=== PATIENT | male | born 1955 | race Caucasian/White ===

== ENCOUNTER → 2018-10-31 15:25 | Outpatient (CLI) | payer OTHER, SELFPAY ==
--- NOTE | 2018-10-31 | DI.MRI.S_ITS ---
PROCEDURE: MR LUMBAR SPINE WO CON INDICATIONS: Low back and right leg radicular pain TECHNIQUE: Noncontrast sagittal T1 spin echo and T2 fast echo, coronal T2, sagittal STIR, axial T1 and T2 fast spin echo through the lumbar spine. COMPARISON: None. FINDINGS: Image quality: Excellent. Alignment and Curvature: No plain films are available for comparison, for numbering purposes. Thus, for the purposes of this examination, 5 lumbar type vertebral bodies will be presumed, as denoted on the montage panel. This should be confirmed and correlated with plain films, prior to any lumbar spinal intervention.There is moderate leftward curvature of the mid lumbar spine. There is roughly 20 mm of rightward subluxation of L1 on L2, and roughly 13 mm of leftward subluxation of L3 on L4. Mild grade 1 retrolisthesis of L1 on L2 is present. Mild grade 1 anterolisthesis of L2 on L3 is present. Bone Marrow: Marrow is of normal overall signal. No acute vertebral body compression fractures. There is mild reactive signal within the endplates adjacent to the 1 L2, L2-L3, and L3-L4 intervertebral discs. Spinal Cord: Conus medullaris terminates at the T12-L1 disc space level. Visualized cord demonstrates normal signal and size. Paraspinous Soft Tissues: No paravertebral masses. L1-L2: Severe disc height loss and desiccation. Mild diffuse disc bulge/osteophyte. Mild facet hypertrophy. Mild canal stenosis. Mild bilateral foraminal stenosis. L2-L3: Moderate disc height loss and desiccation. Mild diffuse disc bulge. Mild bilateral facet hypertrophy. Mild canal stenosis. Moderate right and no left foraminal stenosis. L3-L4: Moderate disc height loss and desiccation. Mild diffuse disc bulge. Mild bilateral facet hypertrophy. Mild epidural lipomatosis. Mild canal stenosis. Mild right greater than left foraminal stenosis. L4-L5: Mild disc height loss and desiccation. Mild diffuse disc bulge. Moderate left greater than right facet hypertrophy. Mild canal stenosis. Severe left and mild right foraminal stenosis. Left L4 nerve compression. L5-S1: Mild disc height loss and desiccation. Mild diffuse disc bulge. Mild facet hypertrophy bilaterally. Mild canal stenosis. Mild bilateral foraminal stenosis. IMPRESSION: 1. 5 lumbar type vertebral bodies were presumed for the current report. Plain films of the lumbar spine are recommended for confirmation, prior to any lumbar spinal intervention. 2. Multilevel degenerative disc and facet disease, as well as ligamentum flavum hypertrophy and epidural lipomatosis. 3. Mild multilevel canal stenoses. 4. Multilevel foraminal stenoses, worst at L4-L5 on the left, where there is L4 nerve root compression. Recommend correlation with clinical symptoms to ascertain relevance of this finding. 5. Spinal curvature and multilevel spondylolistheses as described above. Dictated by: Mandy Ellison M.D. on 10/31/2018 at 16:30 Approved by: Mandy Ellison M.D. on 10/31/2018 at 16:35
== END ==
PROVIDERS: PCP Family Medicine; Visit Provider Family Medicine
DX: M51.16 Intervertebral disc disorders with radiculopathy, lumbar region (principal); M51.17 Intervertebral disc disorders with radiculopathy, lumbosacral region; M48.061 Spinal stenosis, lumbar region without neurogenic claudication; M48.07 Spinal stenosis, lumbosacral region; M47.26 Other spondylosis with radiculopathy, lumbar region; M47.27 Other spondylosis with radiculopathy, lumbosacral region; M43.16 Spondylolisthesis, lumbar region; E88.2 Lipomatosis, not elsewhere classified
CPT/HCPCS: 72148

== ENCOUNTER 2019-11-23 09:39 | Emergency (ER) | payer OTHER, SELFPAY ==
--- NOTE | 2019-11-23 09:36 | DI.RAD.S_ITS ---
PROCEDURE: XR KNEE RT 1TO2V INDICATIONS: knee pain, post op, per ortho TECHNIQUE: 2 views of the knee were acquired. COMPARISON: None. FINDINGS: Bones: No syeda, acute fractures are seen. Remote appearing bone fragments are seen superior to the patella. No suspicious lytic or blastic lesions are seen. Soft tissues: Prominent soft tissue swelling is seen anteriorly. There is a moderate joint effusion. IMPRESSION: Prominent soft tissue swelling is seen anteriorly. Moderate joint effusion. Remote appearing bone fragments are seen superior to patella. Dictated by: Elvis Cuadra M.D. on 11/23/2019 at 9:43 Approved by: Elvis Cuadra M.D. on 11/23/2019 at 9:44
[2019-11-23 09:37] VITALS: BP 167/89; PULSE 76; RESP 18; TEMP 36.9; O2SAT 98
--- NOTE | 2019-11-23 09:40 | ED_ITS ---
HPI - Extremity Injury (Lower) General Chief Complaint: Extremity Injury, Lower Stated Complaint: post op right leg pain Time Seen by Provider: 11/23/19 09:39 Source: patient Mode of arrival: EMS Limitations: no limitations History of Present Illness HPI Narrative: 64-year-old male nonsmoker presents from an outside facility for evaluation of severe right knee pain over the past day or 2. He recently had a quadriceps tendon repair at an outside, free-standing surgical center and was flown from the [facility] to [facility] last evening due to excruciating pain. He denies any new injury and has had no fever chills. His right foot has felt a bit cold and he has noticed significant swelling of his right knee. He has had no runny nose, fever or chills. He denies chest pain or shortness of breath. He denies any abdominal pain. His pain is worse with any motion and improves with rest. He had a very thorough examination in the emergency department in [place] including vascular studies, bedside evaluation by vascular surgeon. There is no occlusion of the vasculature and the right lower extremity. His calf and other compartments have been soft and there is no suspicion for compartment syndrome. He developed vomiting after he was administered ketamine. He was sent here for continuity of care as his surgery was performed by 1 of our surgeons. His initial injury was suffered when running, he tripped and fell forward onto fully flex knee and tore his quad tendon. complaint: knee injury Onset (ago): hour(s) Injury: Right: knee Type of Injury: blunt Place: street/outdoors Severity: severe Relieving factors: immobilization Exacerbating factors: weight bearing, movement and palpation Other symptoms: none Related Data Previous Rx's Medication Instructions Recorded oxycodone 10 mg PO Q6H PRN #42 tab 11/23/19 Allergies Allergy/AdvReac Type Severity Reaction Status Date / Time Penicillins AdvReac Severe ITCHING Verified 11/23/19 09:39 Review of Systems Constitutional Constitutional: Denies chills, Denies fatigue, Denies fever(s), Denies frequent falls, Denies lethargy and Denies weakness Eyes Eyes: Denies change in vision, Denies eye discharge, Denies irritation and Denies loss of vision ENT Ears, Nose, Mouth, and Throat: Denies change in voice, Denies dizziness, Denies neck pain, Denies sore throat and Denies throat swelling Cardiovascular Cardiovascular: Denies chest pain, Denies irregular heart rhythm, Denies lightheadedness, Denies palpitations, Denies dyspnea, Denies dyspnea on exertion and Denies orthopnea Respiratory Respiratory: Denies cough, Denies dyspnea, Denies dyspnea on exertion and Denies wheezing Gastrointestinal Gastrointestinal: Denies abdominal pain, Denies change in bowel habits, Denies diarrhea, Denies nausea and Denies vomiting Musculoskeletal Musculoskeletal: Reports arthralgias, Reports joint swelling, Denies neck pain and Denies numbness Integumentary/Breasts Skin/Breast: Denies pruritus, Reports erythema, Denies rash, Reports skin pain, Reports skin swelling and Denies wounds Neurologic Neurologic: Denies behavioral changes, Denies confusion, Denies dizziness, Denies frequent falls, Denies loss of vision, Denies numbness and Denies weakness Psychiatric Psychiatric: Denies anxiety, Denies behavioral changes, Denies confusion, Denies depression, Denies homicidal ideation and Denies suicidal ideation Endocrine Endocrine: Denies fatigue, Denies flushing and Denies palpitations Hematologic/Lymphatic Hematologic/Lymphatic: Denies easy bruising Allergic/Immunologic Allergic/Immunologic: Denies urticaria, Denies throat swelling and Denies wheezing Patient History Social History Smoking Status: Never smoker Smoking Status: Never smoker alcohol intake frequency: 0-2 drinks per day Substance Use Type: does not use Exam Narrative Exam Narrative: GENERAL: [64] year old patient appears stated age. Well- nourished, well-developed patient, in obvious pain, continuously rubbing his right knee HEAD: Atraumatic. Normocephalic. EYES: Pupils equal round and reactive. Extraocular motions intact. No scleral icterus. No injection or drainage. ENT: Nose without bleeding, purulent drainage. Throat without erythema, tonsillar hypertrophy or exudate. Airway patent. NECK: Trachea midline. Non tender CARDIOVASCULAR: Regular rate and rhythm without murmurs, gallops, or rubs. RESPIRATORY: Clear to auscultation. Breath sounds equal bilaterally. No wheezes, rales, or rhonchi. GASTROINTESTINAL: Abdomen soft, non-tender, nondistended. EXTREMITIES: Right knee with large effusion, erythema and warmth. Right foot is cool to the touch and dorsalis pedis is difficult to palpate, however cap refills present and bedside ultrasound notes flow by color Doppler in the dorsalis pedis. Compartments are soft, calf is nontender. BACK: Nontender without deformity or crepitance. No flank tenderness. NEURO: AOx3. SKIN: Otherwise No rash or erythema of visible areas Initial Vital Signs Initial Vital Signs: Vital Signs Temperature 98.4 F 11/23/19 09:37 Pulse Rate 76 11/23/19 09:37 Respiratory Rate 18 11/23/19 09:37 Blood Pressure 167/89 H 11/23/19 09:37 Pulse Oximetry 98 11/23/19 09:37 Course Orders Ordered: ED Orders 11/23/19 09:36 XR knee RT 1to2V Stat Discontinued Medications Hydromorphone HCl (Dilaudid) 0.5 mg IV NOW ONE Stop: 11/23/19 09:37 Last Admin: 11/23/19 09:42 Dose: 0.5 mg Documented by: BHARAT Oxycodone HCl (Percolone) 5 mg PO NOW ONE Stop: 11/23/19 11:11 Last Admin: 11/23/19 11:51 Dose: 5 mg Documented by: BHARAT Consultations Consultation #1: Call to Orthopedics on arrival this patient, Dr. Ulloa is aware of this patient's case and had been in contact with [facility]. He requests Xray Patient seen and evaluated by Ortho, please see their note for details. Very comfortable with discharge, recommended changing pain medication to Oxy 10 mg p.o. q.4 hours and requests a week's duration Time: 09:57 Vital Signs Vital signs: Vital Signs - 8 hr 11/23/19 09:37 11/23/19 09:53 11/23/19 10:00 Temperature 98.4 F Pulse Rate 76 75 68 Pulse Rate [Right Dorsalis Pedis] 78 Respiratory Rate 18 14 16 Blood Pressure 167/89 H Pulse Oximetry 98 94 97 11/23/19 12:06 Temperature Pulse Rate 78 Pulse Rate [Right Dorsalis Pedis] Respiratory Rate 19 Blood Pressure 156/82 H Pulse Oximetry 96 Discharge Plan Departure Patient Disposition: Home Clinical Impression: Post-operative pain Acute knee pain Qualifiers: Laterality: right Qualified Code(s): M25.561 - Pain in right knee Discharge Date/Time: 11/23/19 12:08 Instructions: DI for Knee Pain Activity Restrictions/Additional Instructions: *You have been diagnosed with [right knee swelling and pain status post surgery] *What to do: *Take medications as directed *Follow up with your primary care provider in 2-3 days, call for an appointment. Let them know you were seen in the Emergency Department and that we ask that you be seen in follow up *Return to ER if you should have any new, worsening or concerning symptoms Prescriptions: New oxycodone 10 mg tablet 10 mg PO Q6H PRN (Reason: pain) Qty: 42 RF: 0 Referrals: Willem Guerra [Primary Care Provider] -
[2019-11-23] MEDS: HYDROMORPHONE 0.5 MG INJ IV (09:42)
[2019-11-23 09:53] VITALS: PULSE 75; PULSE 78; RESP 14; O2SAT 94
[2019-11-23 10:00] VITALS: PULSE 68; RESP 16; O2SAT 97
--- NOTE | 2019-11-23 11:16 | PM.CN ---
History of Present Illness Consult details Date Patient Seen: 11/23/19 Time Patient Seen: 11:16 Chief complaint: post op right leg pain Reason for consult: post-op pain and sswelling Narrative: Patient is a 64 year old male from [place]. 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 He sustained a quad tendon tear and subsequently underwent repair with Dr. Oakley at the [facility] on . He was taking dialudid post-op and did OK the first night but monday night awoke with excruciating pain in the right knee. He called for an ambulance and was subsequently flown to [facility] in [place]. His right foot was found to be cool and mottled color. He underwent a vascular workup including CTA which showed normal runoff. Pain was controlled with IV morphine. Low concern per [facility] for compartment syndrome. I was called this am with concern for large hematoma that may require evacuation. He was subsequently transferred to [facility]. Meds Home Medications and Allergies Allergies Allergy/AdvReac Type Severity Reaction Status Date / Time Penicillins AdvReac Severe ITCHING Verified 11/23/19 09:39 Review of Systems Review of Systems ROS: Yes All systems reviewed with the patient and are negative except as otherwise documented Exam Vital Signs (past 8 hours): - 11/23/19 09:37 11/23/19 09:53 11/23/19 10:00 Temperature 98.4 F Pulse Rate 76 75 68 Pulse Rate [Right Dorsalis Pedis] 78 Respiratory Rate 18 14 16 Blood Pressure 167/89 H Pulse Oximetry 98 94 97 Oxygen Delivery Method Room Air Narrative Exam Narrative: Moderate swelling right knee. Palpable DP pulse, palpable PT pulse. NV intact in RLE. Dressing removed: incision is clean dry and intact. No drainage. NO pain out of proportion to exam, no pain with passive stretch of ankle. No pain with palpation of claf. Mild pain iwth palpation of thigh. Skin over the knee is pink and well perfused, no blanching Objective Imaging knee film: My impression: right knee perpatellar swelling and free air consistent with recent quad tendon repair. Small calcified fragments at superior pole of the patella likely sequela of quad tendon rupture. Assessment & Plan Assessment & Plan narrative: Patient is a 64 year old male now POD#2 from right quad tendon repiar. He was seen at [facility] last night for excruciating post-op pain. There was concern at that time for vascular injury vs compartment syndrome. Both of which were ruled out. CTA Impresison: the arteries are within normal limits from the level of the external iliacs through the right proximal claf. Distal runoff vessels are not opacified on this exam due to the timing of the contrast bolus. Patient is much more comfortable now with pain medications. Oxycodone 10mg Q4hrs PRN pain toe touch weight bearing RLE elevate and ICE Follow up with Dr. Oakley this week Time Spent With Patient Time with patient: 15-24 minutes
[2019-11-23] MEDS: OXYCODONE IR 5 MG TABLET PO (11:51)
[2019-11-23 12:06] VITALS: BP 156/82; PULSE 78; RESP 19; O2SAT 96
== END 2019-11-23 12:08 | disposition home or self-care (01) ==
PROVIDERS: Emergency Provider Emergency Medicine; PCP Family Medicine
DX: M25.561 Pain in right knee (principal)
CPT/HCPCS: 73560; 96374; 99284; J1170

== ENCOUNTER → 2021-12-15 16:29 | Outpatient (CLI) | payer OTHER, SELFPAY | PROVIDERS: PCP Physician Assistant; Referring Provider Internal Medicine; Visit Provider Internal Medicine | DX: Z23 Encounter for immunization (principal) | CPT/HCPCS: 90471; 90662 ==

== ENCOUNTER → 2022-11-30 | Outpatient (CLI) | payer OTHER, SELFPAY | PROVIDERS: PCP Family Medicine; Referring Provider Family Medicine; Visit Provider Family Medicine | DX: Z23 Encounter for immunization (principal) | CPT/HCPCS: 90471; 90662 ==

== ENCOUNTER → 2023-03-16 11:19 | Outpatient (CLI) | payer OTHER, SELFPAY ==
[2023-03-16 15:06] LABS: Add Manual Diff / Slide Review NO; Basophils Absolute Auto 0 /uL (0-100); Basophils Percent Auto 0.5 % (0-2); Eosinophils Absolute Auto 100 /uL (0-450); Eosinophils Percent Auto 1.6 % (2-4); Hematocrit 42.3 % (41-53); Hemoglobin 14.5 g/dL (13.5-17.5); Lymphocytes Absolute Auto 1500 /uL (1100-4500); Lymphocytes Percent Auto 34.3 % (25-40); Mean Corpuscular HGB Conc 34.3 % (30-36); Mean Corpuscular Hemoglobin 30.3 PG (26-34); Mean Corpuscular Volume 88.4 fL (80-100); Monocytes Absolute Auto 300 /uL (0-900); Monocytes Percent Auto 6.8 % (3-14); Neutrophils Absolute Auto 2500 /uL (1500-7000); Neutrophils Percent Auto 56.8 % (50-75); Platelet Count 191 X10^3/uL (150-400); Red Blood Cell Count 4.79 X10^6/uL (4.5-5.9); Red Cell Distribution Width 12.8 % (11.6-14.8); White Blood Cell Count 4.5 X10^3/uL (4.5-11.0)
[2023-03-16 15:11] LABS: Alanine Aminotransferase 24 IU/L (<50); Albumin 4.2 g/dL (3.5-5.0); Albumin Globulin Ratio 1.4 (1.0-2.8); Alkaline Phosphatase 64 U/L (38-126); Aspartate Aminotransferase 32 IU/L (17-59); BUN Creatinine Ratio 18.6 (6-22); Bilirubin Total 0.8 mg/dL (0.2-1.3); Blood Urea Nitrogen 16 mg/dL (9-20); Calcium 9.7 mg/dL (8.4-10.2); Carbon Dioxide 29 mmol/L (22-32); Chloride 102 mmol/L (98-107); Cholesterol 195 mg/dL (140-199); Estimated Glomerular Filt Rate > 60 mL/min (>60); Globulin 3.1 g/dL (1.7-4.1); Glucose 104 mg/dL (80-110); HDL Cholesterol 52 mg/dL (40-60); HEMOLYSIS < 15 (0-50); LDL Cholesterol Calculated 118 mg/dL (<100); Potassium 4.9 mmol/L (3.4-5.1); Sodium 138 mmol/L (137-145); Total Protein 7.3 g/dL (6.3-8.2); Triglycerides 125 mg/dL (35-150)
[2023-03-16 15:42] LABS: TSH w/ Reflex to FT4 1.37 uIU/mL (0.47-4.68)
== END ==
PROVIDERS: PCP Family Medicine; Visit Provider Family Medicine
DX: R03.0 Elevated blood-pressure reading, without diagnosis of hypertension (principal); E78.2 Mixed hyperlipidemia; Z71.89 Other specified counseling; Z12.9 Encounter for screening for malignant neoplasm, site unspecified; Z13.1 Encounter for screening for diabetes mellitus; Z12.5 Encounter for screening for malignant neoplasm of prostate; Z13.6 Encounter for screening for cardiovascular disorders
CPT/HCPCS: 80053; 80061; 84443; 85025

== ENCOUNTER → 2023-12-07 16:12 | Outpatient (CLI) | payer OTHER, SELFPAY | PROVIDERS: PCP Family Medicine; Referring Provider Internal Medicine; Visit Provider Internal Medicine | DX: Z23 Encounter for immunization (principal) | CPT/HCPCS: 90471; 90662 ==

== ENCOUNTER → 2024-07-11 11:38 | Outpatient (CLI) | payer OTHER, SELFPAY ==
[2024-07-11 19:07] LABS: Add Manual Diff / Slide Review NO; Basophils Absolute Auto 0 /uL (0-100); Basophils Percent Auto 0.7 % (0-2); Eosinophils Absolute Auto 100 /uL (0-450); Eosinophils Percent Auto 1.7 % (2-4); Hematocrit 41.4 % (41-53); Hemoglobin 14.2 g/dL (13.5-17.5); Lymphocytes Absolute Auto 1500 /uL (1100-4500); Lymphocytes Percent Auto 30.6 % (25-40); Mean Corpuscular HGB Conc 34.4 % (30-36); Mean Corpuscular Hemoglobin 31.2 PG (26-34); Mean Corpuscular Volume 90.6 fL (80-100); Monocytes Absolute Auto 300 /uL (0-900); Monocytes Percent Auto 6.2 % (3-14); Neutrophils Absolute Auto 3000 /uL (1500-7000); Neutrophils Percent Auto 60.8 % (50-75); Platelet Count 208 X10^3/uL (150-400); Red Blood Cell Count 4.57 X10^6/uL (4.5-5.9); Red Cell Distribution Width 12.5 % (11.6-14.8)
[2024-07-11 19:24] LABS: Alanine Aminotransferase 27 IU/L (<50); Albumin 4.5 g/dL (3.5-5.0); Albumin Globulin Ratio 1.6 (1.0-2.8); Alkaline Phosphatase 81 U/L (38-126); Aspartate Aminotransferase 33 IU/L (17-59); BUN Creatinine Ratio 20.7 (6-22); Bilirubin Total 0.8 mg/dL (0.2-1.3); Blood Urea Nitrogen 18 mg/dL (9-20); Calcium 9.6 mg/dL (8.4-10.2); Carbon Dioxide 28 mmol/L (22-32); Chloride 103 mmol/L (98-107); Cholesterol 202 mg/dL (140-199); Estimated Glomerular Filt Rate > 60 mL/min (>60); Globulin 2.9 g/dL (1.7-4.1); Glucose 108 mg/dL (70-99); HDL Cholesterol 65 mg/dL (40-60); HEMOLYSIS < 15 (0-50); LDL Cholesterol Calculated 122 mg/dL (<100); Potassium 4.6 mmol/L (3.4-5.1); Sodium 138 mmol/L (137-145); Total Protein 7.4 g/dL (6.3-8.2); Triglycerides 73 mg/dL (35-150)
[2024-07-11 19:58] LABS: Prostate Specific Antigen Scrn 0.279 ng/mL (0.1-4.0)
[2024-07-11 20:00] LABS: Testosterone 782 ng/dL (71.8-623)
== END ==
PROVIDERS: PCP Family Medicine; Visit Provider Family Medicine
DX: Z12.5 Encounter for screening for malignant neoplasm of prostate (principal); G47.9 Sleep disorder, unspecified; N40.0 Benign prostatic hyperplasia without lower urinary tract symptoms; H91.90 Unspecified hearing loss, unspecified ear; Z71.89 Other specified counseling; M54.16 Radiculopathy, lumbar region; R03.0 Elevated blood-pressure reading, without diagnosis of hypertension; Z51.81 Encounter for therapeutic drug level monitoring
CPT/HCPCS: 80053; 80061; 84403; 85025; G0103